=== PATIENT | female | born 1935 | race Caucasian/White ===

== ENCOUNTER 2021-08-15 15:23 | Inpatient (IN) | payer OTHER, BC ==
[~2021-08-15] VITALS: Ht 160 cm; Wt 50.1 kg
--- NOTE | 2021-08-15 15:57 | NUR ---
[facility] Provider at [facility] c/o pt has abnormal lab values. Pt is confused and saying random words. Pt is restless and slightly combative. 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 Skin intact. VSS. Bed in lowest position.
--- NOTE | 2021-08-15 16:08 | NUR ---
MILAD MAYANK ANTIGEN SAMPLE SENT TO LAB.
[2021-08-15] MEDS ORDERED: HYDR-3698 GT (16:14)
[2021-08-15] MEDS ORDERED: LOVI40 SQ (16:14)
[2021-08-15] MEDS ORDERED: ACET325T53 GT (16:14)
[2021-08-15] MEDS ORDERED: ASCO500T20 GT (16:14)
[2021-08-15] MEDS ORDERED: NL IV (16:14)
[2021-08-15] MEDS ORDERED: DOCU-144 GT (16:14)
[2021-08-15] MEDS ORDERED: LACT10SO6 GT (16:14)
[2021-08-15] MEDS ORDERED: PEG15DRO12 EACH EYE (16:14)
[2021-08-15] MEDS ORDERED: MULT-1193 GT (16:14)
[2021-08-15] MEDS ORDERED: POTA-197 GT (16:14)
[2021-08-15] MEDS ORDERED: FAMO20TA8 GT (16:14)
[2021-08-15] MEDS ORDERED: FERR236T3 GT (16:14)
--- NOTE | 2021-08-15 16:14 | NUR ---
Medication reconciliation completed with information provided by [facility]. Any prior medication reconciliation on file was reviewed and corrected.
--- NOTE | 2021-08-15 16:35 | NUR ---
X-Ray being done at bedside.
--- NOTE | 2021-08-15 16:37 | NUR ---
ER at bedside examining patient.
--- NOTE | 2021-08-15 16:39 | NUR ---
fiberglass technician at bedside.
--- NOTE | 2021-08-15 16:39 | NUR ---
Personal Belonging List Completed.
[2021-08-15 17:09] LABS: ANION GAP 14 (5-15); CALCIUM 9.8 mg/dL (8.4-11.0); CHLORIDE 103 mmol/L (98-107); CREATININE 2.95 mg/dL (0.55-1.30); GLUCOSE 96 mg/dL (70-99); HEMOGLOBIN 9.9 g/dL (12.0-16.0); MEAN CORPUSCULAR HGB CONC 33 % (32-36); POTASSIUM 3.4 mmol/L (3.5-5.1); SODIUM SERUM 141 mmol/L (136-145); WHITE BLOOD COUNT (AUTO) 7.5 K/uL (4.8-10.8)
[2021-08-15 17:15] LABS: ALANINE AMINOTRANSFERASE 8 U/L (12-78); ALBUMIN 2.8 g/dL (3.4-4.8); ASPARTATE AMINOTRANSFERASE 20 U/L (10-37); PHOSPHORUS 5.9 mg/dL (2.7-4.5); TOTAL BILIRUBIN 0.3 mg/dL (0.0-1.0)
[2021-08-15 17:20] LABS: BASOPHILS % (AUTO) 0.6 % (0.0-2.0); EOSINOPHILS # (AUTO) 0.5 K/uL (0.0-0.4); EOSINOPHILS % (AUTO) 6.1 % (0.0-4.0); HEMATOCRIT 29.9 % (36-48); LYMPHOCYTES % (AUTO) 26.7 % (20.5-51.5); MEAN CORPUSCULAR HEMOGLOBIN 28 pg (27-31); MEAN CORPUSCULAR VOLUME 83 fL (79.0-98.0); MONOCYTES # (AUTO) 0.3 K/uL (0.0-1.0); MONOCYTES % (AUTO) 4.4 % (1.7-9.3); NEUTROPHILS # (AUTO) 4.7 K/uL (1.8-7.7); NEUTROPHILS % (AUTO) 62.2 % (40.0-70.0); PLATELET COUNT (AUTO) 367 K/uL (130-430); RED BLOOD CELL COUNT(AUTO) 3.61 MIL/uL (4.2-6.2); RED CELL DISTRIBUTION WIDTH 15.8 % (9.0-15.0)
[2021-08-15 17:32] LABS: UREA NITROGEN, BLOOD 147 mg/dL (8-21)
--- NOTE | 2021-08-15 18:09 | NUR ---
Unable to perform EKG due to pt being combative. Dr. Sargent notified.
--- NOTE | 2021-08-15 18:38 | NUR ---
Admitting orders received and have been placed.
--- NOTE | 2021-08-15 18:39 | NUR ---
Admit bed requested Patient will be admitted to care of . Admitted to Tele unit. Diagnosis Acute Renal Failure Inpatient (Yes or No) Yes Observation (Yes or No) No Orientation concerns or request close to nursing station (Yes or No) Yes Covid Status Negative On vent or bipap No Isolation requirements No Needs a sitter No From Home (Yes or if No enter name of facility) snf [facility] Requires Dialysis (Yes or No) No Med Rec Completed (Yes of No) yes
[2021-08-15] MEDS ORDERED: HALOPERIDOL LACTATE 5 MG/ML VIAL IVP ONE (18:45)
[2021-08-15] MEDS ORDERED: ACETAMINOPHEN 325 MG TABLET PO PRN ×2 (19:00)
[2021-08-15] MEDS ORDERED: MAGNESIUM SULFATE 50 ML IV PRN (19:00)
[2021-08-15] MEDS ORDERED: DOCUSATE SODIUM 100 MG CAPSULE PO PRN (19:00)
[2021-08-15] MEDS ORDERED: POTASSIUM CHLORIDE 20 MEQ TAB.PRT.SR PO PRN (19:00)
[2021-08-15] MEDS ORDERED: ONDANSETRON HCL 4 MG/2 ML VIAL IVP PRN (19:00)
[2021-08-15] MEDS ORDERED: NACL 0.9% 1,000 ML IV ONE ×2 (19:00→19:30)
[2021-08-15] MEDS ORDERED: MORPHINE 2 MG/ML INJ. SYRINGE IVP PRN (19:00)
--- NOTE | 2021-08-15 19:01 | NUR ---
# 24 gauge angiocath placed to right forearm. Use of asceptic technique. Opsite placed over site. Blood return noted. Flushed with 10 cc of normal saline. No evidence of infiltration noted. Patient tolerated well.
[2021-08-15] MEDS ORDERED: LORazepam 2 MG/ML VIAL IVP ONE (19:15)
--- NOTE | 2021-08-15 19:20 | NUR ---
Report received from Brandie MELENDEZ at this time. Pt resting in bed at this. EKG attempted by staff, but pt was yelling and continuously taking off leads, so more time to be given for patient to become calm s/p Haldol. Respirations even and unlabored.
--- NOTE | 2021-08-15 21:26 | NUR ---
ADMIT NOTE Received pt from ER to the floor with a diagnosis of ACUTE RENAL FAILURE. Admission process initiated. patient oriented to pain management, safety and call light-teach back done.
[2021-08-15 23:26] VITALS: BP_SYST 111
[2021-08-15] MEDS: LORazepam 2 MG/ML VIAL IVP PRN (23:37)
--- NOTE | 2021-08-16 05:15 | NUR ---
CONSULTATION PAGED/CALLED Reason for Consultation: ACUTE RENAL FAILURE Person Who was Notified:SAMMY Consulting Physician: YAEL Territory Manager General Sales Specialty: Ordering Physician: RACHEL
[2021-08-16 07:39] LABS: ANION GAP 10 (5-15); CALCIUM 10.3 mg/dL (8.4-11.0); CHLORIDE 105 mmol/L (98-107); CREATININE 2.91 mg/dL (0.55-1.30); GLUCOSE 108 mg/dL (70-99); POTASSIUM 3.5 mmol/L (3.5-5.1); SODIUM SERUM 141 mmol/L (136-145)
[2021-08-16 08:00] VITALS: BP_SYST 105
[2021-08-16 08:52] LABS: BASOPHILS # (AUTO) 0.1 K/uL (0.0-0.2); BASOPHILS % (AUTO) 0.7 % (0.0-2.0); EOSINOPHILS # (AUTO) 0.5 K/uL (0.0-0.4); HEMATOCRIT 29.9 % (36-48); HEMOGLOBIN 10.4 g/dL (12.0-16.0); LYMPHOCYTES # (AUTO) 2.9 K/uL (1.0-5.5); MEAN CORPUSCULAR HEMOGLOBIN 28 pg (27-31); MEAN CORPUSCULAR HGB CONC 35 % (32-36); MEAN CORPUSCULAR VOLUME 82 fL (79.0-98.0); MONOCYTES # (AUTO) 0.6 K/uL (0.0-1.0); MONOCYTES % (AUTO) 7.7 % (1.7-9.3); NEUTROPHILS % (AUTO) 49.6 % (40.0-70.0); PLATELET COUNT (AUTO) 354 K/uL (130-430); RED BLOOD CELL COUNT(AUTO) 3.64 MIL/uL (4.2-6.2); RED CELL DISTRIBUTION WIDTH 16.1 % (9.0-15.0); WHITE BLOOD COUNT (AUTO) 8.1 K/uL (4.8-10.8)
[2021-08-16] MEDS: HEPARIN SODIUM,PORCINE 5,000 UNITS/ML VIAL SUBCUT SCH ×2 (09:00→21:16)
[2021-08-16 09:24] LABS: UREA NITROGEN, BLOOD 150 mg/dL (8-21)
--- NOTE | 2021-08-16 09:30 | NUR ---
Called and spoke Dr Dhillon to inform her of critical lab BUN 150. No orders given. She will consult [facility] nephrology.
--- NOTE | 2021-08-16 09:33 | NUR ---
VOLCANOLOGY PROFESSOR DR CONLEY WAS CALLED, RE: HIGH BUN AND CREA.
[2021-08-16] MEDS: NACL 0.9% 1,000 ML IV SCH ×2 (10:24→19:32)
[2021-08-16 12:00] VITALS: BP_SYST 101
[2021-08-16] MEDS: LORazepam 2 MG/ML VIAL IVP PRN ×2 (14:46→21:36)
[2021-08-16 16:00] VITALS: BP_SYST 106
[2021-08-16 19:52] VITALS: BP_SYST 142
--- NOTE | 2021-08-16 20:00 | NUR ---
RECIEVED PT FROM am NURSE. pT IS AOX1 NON VERBAL. pT ST AT 115, AND HAS RIGHT EJ 20G. LUNGS ARE IMINISHED AT BASES. PT IS CONFUSED, UNABLE TO ARTICULATE NEEDS. FAL PRECAUTIONS IN PLACE. BED LCKED I THE LOWEST POSITION WITH CALL LIGHT IN REACH. wILL CONTINUE TO MONITOR.
[2021-08-16 20:07] VITALS: BP_SYST 146
--- NOTE | 2021-08-16 21:59 | NUR ---
RECIEVED ORDER FROM md TIERNEY. ORDER FOR PICC. WILL ATTAIN CONSCENT. PT CURRENTLY HAS A ej RIGHT 20G. NOTIFIED.
[2021-08-16 23:41] LABS: INR 1.1 (0.8-1.2); PROTHROMBIN TIME 11.4 SECS (9.5-12.5)
[2021-08-17 00:45] VITALS: BP_SYST 114
[2021-08-17] MEDS: NACL 0.9% 1,000 ML IV SCH ×3 (02:20→23:59)
--- NOTE | 2021-08-17 05:07 | NUR ---
PT CLEANED, NO URINE COLLECTED. pT OSTOMY BAG EMPTIED. pT IN CONFUSED AND AGGITATED STATE. VS 132/80 BPM 96 SAT 98%. wILL ENDORSE TO AM
[2021-08-17 08:00] VITALS: BP_SYST 103
[2021-08-17 08:13] LABS: BASOPHILS # (AUTO) 0.1 K/uL (0.0-0.2); BASOPHILS % (AUTO) 0.7 % (0.0-2.0); EOSINOPHILS # (AUTO) 0.7 K/uL (0.0-0.4); EOSINOPHILS % (AUTO) 9.3 % (0.0-4.0); HEMOGLOBIN 9.4 g/dL (12.0-16.0); LYMPHOCYTES # (AUTO) 1.1 K/uL (1.0-5.5); LYMPHOCYTES % (AUTO) 14.8 % (20.5-51.5); MEAN CORPUSCULAR HEMOGLOBIN 29 pg (27-31); MEAN CORPUSCULAR HGB CONC 34 % (32-36); MONOCYTES # (AUTO) 0.5 K/uL (0.0-1.0); MONOCYTES % (AUTO) 6.5 % (1.7-9.3); NEUTROPHILS # (AUTO) 5.1 K/uL (1.8-7.7); NEUTROPHILS % (AUTO) 68.7 % (40.0-70.0); PLATELET COUNT (AUTO) 341 K/uL (130-430); RED BLOOD CELL COUNT(AUTO) 3.21 MIL/uL (4.2-6.2); RED CELL DISTRIBUTION WIDTH 16.3 % (9.0-15.0); WHITE BLOOD COUNT (AUTO) 7.4 K/uL (4.8-10.8)
[2021-08-17 08:47] LABS: ANION GAP 12 (5-15); CALCIUM 8.8 mg/dL (8.4-11.0); CHLORIDE 115 mmol/L (98-107); CREATININE 2.34 mg/dL (0.55-1.30); GLUCOSE 88 mg/dL (70-99); POTASSIUM 3.2 mmol/L (3.5-5.1); SODIUM SERUM 149 mmol/L (136-145)
[2021-08-17 10:07] LABS: UREA NITROGEN, BLOOD 122 mg/dL (8-21)
[2021-08-17 10:48] LABS: MEAN CORPUSCULAR VOLUME 87 fL (79.0-98.0)
[2021-08-17 12:57] VITALS: BP_SYST 139
[2021-08-17] MEDS: HEPARIN SODIUM,PORCINE 5,000 UNITS/ML VIAL SUBCUT SCH ×2 (13:30→21:13)
[2021-08-17] MEDS: LORazepam 2 MG/ML VIAL IVP PRN (13:31)
[2021-08-17] MEDS ORDERED: MUPIROCIN 1 GM OIN.PF.APP NS SCH (16:15)
[2021-08-17 16:57] VITALS: BP_SYST 112
[2021-08-17 19:09] VITALS: BP_SYST 103
[2021-08-17] MEDS: MUPIROCIN 2% TOPICAL OINTMENT 22 GM NS SCH (21:11)
[2021-08-18 00:22] VITALS: BP_SYST 134
[2021-08-18] MEDS: NACL 0.9% 1,000 ML IV SCH (02:15)
[2021-08-18 07:55] LABS: BASOPHILS % (AUTO) 0.4 % (0.0-2.0); EOSINOPHILS # (AUTO) 0.4 K/uL (0.0-0.4); EOSINOPHILS % (AUTO) 5.8 % (0.0-4.0); HEMATOCRIT 25.6 % (36-48); HEMOGLOBIN 8.6 g/dL (12.0-16.0); LYMPHOCYTES # (AUTO) 1.1 K/uL (1.0-5.5); LYMPHOCYTES % (AUTO) 15.5 % (20.5-51.5); MEAN CORPUSCULAR HEMOGLOBIN 29 pg (27-31); MEAN CORPUSCULAR HGB CONC 33 % (32-36); MEAN CORPUSCULAR VOLUME 86 fL (79.0-98.0); MONOCYTES # (AUTO) 0.4 K/uL (0.0-1.0); MONOCYTES % (AUTO) 5.8 % (1.7-9.3); NEUTROPHILS # (AUTO) 5.3 K/uL (1.8-7.7); NEUTROPHILS % (AUTO) 72.5 % (40.0-70.0); PLATELET COUNT (AUTO) 311 K/uL (130-430); RED BLOOD CELL COUNT(AUTO) 2.97 MIL/uL (4.2-6.2); RED CELL DISTRIBUTION WIDTH 16.8 % (9.0-15.0); WHITE BLOOD COUNT (AUTO) 7.4 K/uL (4.8-10.8)
[2021-08-18 08:00] VITALS: BP_SYST 117
[2021-08-18 08:22] LABS: ANION GAP 13 (5-15); CALCIUM 8.6 mg/dL (8.4-11.0); CREATININE 2.07 mg/dL (0.55-1.30); GLUCOSE 116 mg/dL (70-99); POTASSIUM 3.1 mmol/L (3.5-5.1); SODIUM SERUM 158 mmol/L (136-145); UREA NITROGEN, BLOOD 97 mg/dL (8-21)
[2021-08-18 09:44] LABS: CHLORIDE 124 mmol/L (98-107)
[2021-08-18] MEDS: MUPIROCIN 2% TOPICAL OINTMENT 22 GM NS SCH ×2 (10:08→20:58)
[2021-08-18] MEDS: HEPARIN SODIUM,PORCINE 5,000 UNITS/ML VIAL SUBCUT SCH ×2 (10:10→20:57)
[2021-08-18] MEDS: D5W 1,000 ML IV SCH ×2 (10:51→18:57)
[2021-08-18 12:44] VITALS: BP_SYST 111
[2021-08-18] MEDS: POTASSIUM CHLORIDE 20 MEQ/PKT PACKET PO PRN (14:27)
[2021-08-18] MEDS: MORPHINE 2 MG/ML INJ. SYRINGE IVP PRN (14:44)
[2021-08-18 16:21] VITALS: BP_SYST 116
--- NOTE | 2021-08-18 18:45 | NUR ---
Miss Lee has been assessed as indicated. She has tolerated TF well. She has been visited by her brother. 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 She has been treated for discomfort x1 this shift and is presently quietly
--- NOTE | 2021-08-18 19:15 | NUR ---
Handoff has been given to Ashanti
[2021-08-19 00:37] VITALS: BP_SYST 130
[2021-08-19] MEDS: D5W 1,000 ML IV SCH ×4 (04:05→23:00)
[2021-08-19 07:36] LABS: BASOPHILS # (AUTO) 0.1 K/uL (0.0-0.2); BASOPHILS % (AUTO) 0.5 % (0.0-2.0); EOSINOPHILS # (AUTO) 0.4 K/uL (0.0-0.4); EOSINOPHILS % (AUTO) 3.3 % (0.0-4.0); HEMATOCRIT 25.2 % (36-48); HEMOGLOBIN 8.3 g/dL (12.0-16.0); LYMPHOCYTES # (AUTO) 1.9 K/uL (1.0-5.5); LYMPHOCYTES % (AUTO) 17.5 % (20.5-51.5); MEAN CORPUSCULAR HEMOGLOBIN 28 pg (27-31); MEAN CORPUSCULAR HGB CONC 33 % (32-36); MEAN CORPUSCULAR VOLUME 86 fL (79.0-98.0); MONOCYTES # (AUTO) 0.6 K/uL (0.0-1.0); MONOCYTES % (AUTO) 5.4 % (1.7-9.3); NEUTROPHILS % (AUTO) 73.3 % (40.0-70.0); PLATELET COUNT (AUTO) 300 K/uL (130-430); RED BLOOD CELL COUNT(AUTO) 2.94 MIL/uL (4.2-6.2); RED CELL DISTRIBUTION WIDTH 16.4 % (9.0-15.0); WHITE BLOOD COUNT (AUTO) 10.9 K/uL (4.8-10.8)
[2021-08-19 08:00] VITALS: BP_SYST 101
[2021-08-19 08:12] LABS: ANION GAP 10 (5-15); CALCIUM 8.6 mg/dL (8.4-11.0); CHLORIDE 117 mmol/L (98-107); CREATININE 1.85 mg/dL (0.55-1.30); GLUCOSE 122 mg/dL (70-99); POTASSIUM 3.4 mmol/L (3.5-5.1); SODIUM SERUM 149 mmol/L (136-145); UREA NITROGEN, BLOOD 69 mg/dL (8-21)
[2021-08-19] MEDS: HEPARIN SODIUM,PORCINE 5,000 UNITS/ML VIAL SUBCUT SCH ×2 (10:01→21:41)
[2021-08-19] MEDS: MUPIROCIN 2% TOPICAL OINTMENT 22 GM NS SCH ×2 (10:01→21:44)
[2021-08-19 11:01] LABS: BILIRUBIN,URINE NEGATIVE (NEGATIVE); BLOOD, URINE 2+ (NEGATIVE); CLARITY/URINE TURBID (CLEAR); COLOR,URINE YELLOW (YELLOW); GLUCOSE,URINE NEGATIVE (NEGATIVE); KETONES,URINE NEGATIVE (NEGATIVE); LEUKOCYTE ESTERASE ,URINE 3+ (NEGATIVE); NITRITE, URINE POSITIVE (NEGATIVE); PROTEIN URINE TRACE (NEGATIVE); UROBILINOGEN,URINE 0.2 (0.2-1.0)
[2021-08-19 11:12] LABS: BACTERIA,URINE MANY /HPF (None Seen); WBC,URINE >100 /HPF (0-3)
[2021-08-19 11:13] LABS: MUCUS,URINE 1+ /LPF (None Seen)
--- NOTE | 2021-08-19 11:53 | NUR ---
Discharge Planning: ANN faxed pt referral to [facility] P#[phone] ANN to follow up. Addendum: 08/19/21 at 1415 by Zulema Benson DP ANN followed up with Sailaja at [facility] P#[phone] pt will go to [facility] [address]. ANN made CM aware.
[2021-08-19 12:33] VITALS: BP_SYST 113
[2021-08-19] MEDS: POTASSIUM CHLORIDE 20 MEQ/PKT PACKET PO PRN (12:43)
--- NOTE | 2021-08-19 14:39 | NUR ---
Dietitian Recommendations * Decrease TF to Nepro at 25 ml/hr (goal rate), FWF per MD * TF w/ D5W provides: 1692 kcals/day, 49 g protein/day * Meetin% of upper end of estimated caloric needs and 122% of upper end of estimated protein needs * Consider discontinuing D5W d/t excessive caloric intake and elevated BG. Please refer to Nutrition Assessment for details. Addendum: 08/19/21 at [address] Amended: Links added.
[2021-08-19 16:24] VITALS: BP_SYST 119
--- NOTE | 2021-08-19 18:45 | NUR ---
Miss Liang has been assessed as indicated. her TF is presently being held until CXR is read. IVF has been well tolerated. UA has been collected and sent. colostomy functions well with liquid green stools. suction has been set up for thick yellow secretion that he has started to have. her brother called to check on her but did not come in for a visit today. Miss Liang rests quietly at this time
--- NOTE | 2021-08-19 19:24 | NUR ---
handoff has been given to Zain
[2021-08-19 20:32] VITALS: BP_SYST 108
[2021-08-20] VITALS: BP_SYST 119
--- NOTE | 2021-08-20 04:39 | NUR ---
CONSULTATION PAGED/CALLED Reason for Consultation: G TUBE CONNECTION FOR FEEDING Person Who was Notified: Consulting Physician: MARVA BURGESS ONCVIPUL [employer] Service Specialty: Ordering Physician: BARRINGTON
[2021-08-20] MEDS: D5W 1,000 ML IV SCH ×3 (06:15→18:53)
[2021-08-20] MEDS: ACETYLCYSTEINE 10% 4 ML VIAL (RT) INH SCH ×2 (07:30→15:46)
[2021-08-20 07:53] LABS: BASOPHILS % (AUTO) 0.2 % (0.0-2.0); EOSINOPHILS # (AUTO) 0.1 K/uL (0.0-0.4); EOSINOPHILS % (AUTO) 0.6 % (0.0-4.0); HEMATOCRIT 24.5 % (36-48); HEMOGLOBIN 8.3 g/dL (12.0-16.0); LYMPHOCYTES # (AUTO) 1.7 K/uL (1.0-5.5); MEAN CORPUSCULAR HEMOGLOBIN 28 pg (27-31); MEAN CORPUSCULAR HGB CONC 34 % (32-36); MEAN CORPUSCULAR VOLUME 84 fL (79.0-98.0); MONOCYTES # (AUTO) 0.8 K/uL (0.0-1.0); MONOCYTES % (AUTO) 5.9 % (1.7-9.3); NEUTROPHILS # (AUTO) 11.3 K/uL (1.8-7.7); NEUTROPHILS % (AUTO) 81.3 % (40.0-70.0); PLATELET COUNT (AUTO) 267 K/uL (130-430); RED BLOOD CELL COUNT(AUTO) 2.92 MIL/uL (4.2-6.2); RED CELL DISTRIBUTION WIDTH 16.6 % (9.0-15.0); WHITE BLOOD COUNT (AUTO) 13.9 K/uL (4.8-10.8)
[2021-08-20 08:01] LABS: ANION GAP 8 (5-15); CALCIUM 8.1 mg/dL (8.4-11.0); CHLORIDE 104 mmol/L (98-107); GLUCOSE 141 mg/dL (70-99); POTASSIUM 3.9 mmol/L (3.5-5.1); SODIUM SERUM 133 mmol/L (136-145); UREA NITROGEN, BLOOD 50 mg/dL (8-21)
[2021-08-20] MEDS ORDERED: cefTRIAXone 1 GM in D5W 50 ML IV SCH (09:00)
[2021-08-20] MEDS: ALBUTEROL SULFATE 0.083% 2.5 MG/3 ML VIAL.NEB INH SCH ×2 (09:00→15:46)
--- NOTE | 2021-08-20 10:03 | NUR ---
Discharge Planning: DCP arranged transport on Will Call with [facility] [phone] BLS to [facility] P#[phone] pt will go to RM 311A. Pending final DC order.
--- NOTE | 2021-08-20 10:05 | NUR ---
CONSULT ID WORSENING WBC VIOLET MCDONALD [phone] S/W [facility] OFFICE FS FAXED TO [phone]
[2021-08-20] MEDS: HEPARIN SODIUM,PORCINE 5,000 UNITS/ML VIAL SUBCUT SCH ×2 (10:45→21:56)
[2021-08-20] MEDS: MUPIROCIN 2% TOPICAL OINTMENT 22 GM NS SCH ×2 (10:46→21:58)
[2021-08-20 11:35] VITALS: BP_SYST 117
--- NOTE | 2021-08-20 12:53 | NUR ---
Miss Liang is awaiting PEG tube replacement. [facility] with a 16fr sized device that is not available at this time.
[2021-08-20 13:16] VITALS: BP_SYST 117
[2021-08-20 15:40] VITALS: BP_SYST 97
[2021-08-20 20:00] VITALS: BP_SYST 110
--- NOTE | 2021-08-20 20:00 | NUR ---
OPENING NOTES: Patient received from AM shift. Patient is no able to make needs known no s/s of distress is noted at this time. Chest rise is even and unlabored on 8L via simple mask. Heart rate is elevated noted at >110bpm. Active BS present x4, no pain noted with palpation, no distention noted. GT peg noted. PIV on RFA infusing D5 at 150ml/hr. Safety measures are in place. Will continue to monitor throughout the shift.
[2021-08-21] MEDS: ALBUTEROL SULFATE 0.083% 2.5 MG/3 ML VIAL.NEB INH SCH ×4 (00:55→21:43)
[2021-08-21] MEDS: ACETYLCYSTEINE 10% 4 ML VIAL (RT) INH SCH ×4 (00:55→21:43)
--- NOTE | 2021-08-21 01:30 | NUR ---
Patient HR noted to be elevated and sustaining in 150bpm range Dr. York notified new order for Lopressor given 2.5IVP.
[2021-08-21 01:47] VITALS: BP_SYST 107
[2021-08-21] MEDS ORDERED: METOPROLOL TARTRATE 5 MG/5 ML AMPUL IVP ONE (02:00)
[2021-08-21] MEDS: MORPHINE 2 MG/ML INJ. SYRINGE IVP PRN (02:06)
--- NOTE | 2021-08-21 02:15 | NUR ---
Patient BP is low at 81/60 not able to give lopressor at this time
[2021-08-21] MEDS: D5W 1,000 ML IV SCH ×3 (02:35→15:29)
--- NOTE | 2021-08-21 03:30 | NUR ---
Patient BP noted at 90/62 will hold lopressor reassess and call
--- NOTE | 2021-08-21 06:48 | NUR ---
CLOSING NOTES: Patient is in bed resting no s/s of distress is noted at this time current HR is 111. BP has increased to 106/46. Chest rise is even and unlabored. Patient is stable at this time. All current shift needs have been met and safety protocols remain in place. Will differ further care to AM shift for continuity of care.
[2021-08-21 07:14] LABS: BASOPHILS % (AUTO) 0.1 % (0.0-2.0); HEMATOCRIT 23.7 % (36-48); LYMPHOCYTES # (AUTO) 1.3 K/uL (1.0-5.5); MEAN CORPUSCULAR HEMOGLOBIN 28 pg (27-31); MEAN CORPUSCULAR HGB CONC 34 % (32-36); MEAN CORPUSCULAR VOLUME 83 fL (79.0-98.0); MONOCYTES # (AUTO) 0.8 K/uL (0.0-1.0); MONOCYTES % (AUTO) 4.5 % (1.7-9.3); NEUTROPHILS # (AUTO) 14.6 K/uL (1.8-7.7); NEUTROPHILS % (AUTO) 87.4 % (40.0-70.0); PLATELET COUNT (AUTO) 251 K/uL (130-430); RED BLOOD CELL COUNT(AUTO) 2.88 MIL/uL (4.2-6.2); RED CELL DISTRIBUTION WIDTH 15.9 % (9.0-15.0); WHITE BLOOD COUNT (AUTO) 16.7 K/uL (4.8-10.8)
--- NOTE | 2021-08-21 07:39 | NUR ---
CONSULTATION PAGED REASON FOR CONSULTATION:PERSITENT TACHYCARDIA WAS CONSULT CALLED?Y -PERSON WHO WAS NOTIFIED:SAMMY CONSULTING PHYSICIAN:[facility]ER [facility] SURG[facility] TECH SPECIALTY:CARDIO SURGERY TECH PHONE NUMBER:[phone] REQUESTING PHYSICIAN[facility]
[2021-08-21 07:45] LABS: ANION GAP 11 (5-15); CHLORIDE 98 mmol/L (98-107); CREATININE 1.74 mg/dL (0.55-1.30); GLUCOSE 117 mg/dL (70-99); POTASSIUM 4.1 mmol/L (3.5-5.1); SODIUM SERUM 127 mmol/L (136-145); UREA NITROGEN, BLOOD 52 mg/dL (8-21)
[2021-08-21 08:00] VITALS: BP_SYST 90
[2021-08-21] MEDS: HEPARIN SODIUM,PORCINE 5,000 UNITS/ML VIAL SUBCUT SCH ×2 (08:47→21:45)
[2021-08-21] MEDS: MUPIROCIN 2% TOPICAL OINTMENT 22 GM NS SCH ×2 (08:48→21:41)
[2021-08-21 09:20] LABS: CALCIUM 7.5 mg/dL (8.4-11.0)
[2021-08-21] MEDS ORDERED: LEVOFLOXACIN 250 MG/D5W 50 ML IV SCH (10:00)
[2021-08-21 11:36] VITALS: BP_SYST 122
[2021-08-21] MEDS ORDERED: VANCOMYCIN HCL 1,000 MG in NS 250 ML IV SCH (12:00)
--- NOTE | 2021-08-21 13:00 | NUR ---
NEWLY ORDERED IV ABX NOT GIVEN NO IV ACCESS
--- NOTE | 2021-08-21 15:00 | NUR ---
UNABLE TO ESTABLISH IV ACCESS. WILL NEED PICC LINE
[2021-08-21 15:48] VITALS: BP_SYST 91
--- NOTE | 2021-08-21 17:37 | NUR ---
PICC LINE ORDERED AND AWAITING PICC LINE NURSE'S ARRIVAL
[2021-08-21 18:48] LABS: INR 1.1 (0.8-1.2); PROTHROMBIN TIME 11.9 SECS (9.5-12.5)
--- NOTE | 2021-08-21 19:00 | NUR ---
Miss Liang has been assessed as indicated. Her TF is running and has been well tolerated. She remains on simple mask. she is awaitig PICC line access consent has been obtained. She is resting quietly
--- NOTE | 2021-08-21 19:15 | NUR ---
handoff has been given to Shanta
--- NOTE | 2021-08-21 19:30 | NUR ---
OPENING NOTES: Patient received from AM shift. Patient is unable to communicate needs, no s/s of distress is noted at this time. Chest rise is even and tachy on 8L via simple mask with O2 sat at 99%. Tachy HR present on telemonitoring ranging up to 120bpm at this time. Active BS x4, no pain with palpation, no distention noted. Colostomy bag noted on ABD and GT site with s/s of infection. Patient has Tube feeding running at 30ml/hr with 300ml H2O flushes Q6hrs. No PIV in place but order are in place for the insertion of a PICC Line. All IV orders are on Hold pending placement and verification. Safety protocols are in place will continue to monitor throughout the shift.
[2021-08-21 20:00] VITALS: BP_SYST 103
--- NOTE | 2021-08-22 00:30 | NUR ---
PATIENT RESTING: Patient resting quietly. No acute distress noted. Vital signs within normal range.
[2021-08-22] MEDS ORDERED: LEVOFLOXACIN 250 MG/D5W 50 ML IV SCH (01:00)
--- NOTE | 2021-08-22 01:30 | NUR ---
PICC Line nurse at Bedside inserting new line.
[2021-08-22 01:48] VITALS: BP_SYST 89
[2021-08-22] MEDS: D5W 1,000 ML IV SCH ×2 (02:23→12:27)
[2021-08-22] MEDS: VANCOMYCIN HCL 1,000 MG in NS 250 ML IV SCH (02:24)
[2021-08-22 07:06] LABS: BASOPHILS % (AUTO) 0.2 % (0.0-2.0); EOSINOPHILS % (AUTO) 0.1 % (0.0-4.0); HEMATOCRIT 22.1 % (36-48); HEMOGLOBIN 7.5 g/dL (12.0-16.0); LYMPHOCYTES # (AUTO) 1.1 K/uL (1.0-5.5); LYMPHOCYTES % (AUTO) 7.2 % (20.5-51.5); MEAN CORPUSCULAR HEMOGLOBIN 28 pg (27-31); MEAN CORPUSCULAR HGB CONC 34 % (32-36); MEAN CORPUSCULAR VOLUME 82 fL (79.0-98.0); MONOCYTES # (AUTO) 0.4 K/uL (0.0-1.0); MONOCYTES % (AUTO) 2.3 % (1.7-9.3); NEUTROPHILS % (AUTO) 90.2 % (40.0-70.0); PLATELET COUNT (AUTO) 232 K/uL (130-430); RED CELL DISTRIBUTION WIDTH 16.2 % (9.0-15.0); WHITE BLOOD COUNT (AUTO) 15.5 K/uL (4.8-10.8)
--- NOTE | 2021-08-22 07:31 | NUR ---
CLOSING NOTES: Patient is in bed resting no s/s of distress is noted at this time. Patient is unable to verbalize need. All current shift needs have been met at this time, Safety measures are in place. Will differ care to AM shift for continuity of care.
[2021-08-22 07:32] LABS: ANION GAP 10 (5-15); CALCIUM 7.3 mg/dL (8.4-11.0); CHLORIDE 96 mmol/L (98-107); CREATININE 1.62 mg/dL (0.55-1.30); GLUCOSE 124 mg/dL (70-99); POTASSIUM 3.7 mmol/L (3.5-5.1); SODIUM SERUM 125 mmol/L (136-145); UREA NITROGEN, BLOOD 55 mg/dL (8-21)
--- NOTE | 2021-08-22 07:50 | NUR ---
AM ASSESSMENT PT SEEN PUSHING DOWN HER RIGHT FINGERS TO HER MOUTH, TURNED AND REPOSITIONED IN BED, RESTRAINTS OFF AND ON, GTUBE AND COLOSTOMY BAG IN PLACE, INCONTINENT OF BLADDER, GOOD PERICARE DONE.
[2021-08-22 07:51] VITALS: BP_SYST 109
[2021-08-22] MEDS: ALBUTEROL SULFATE 0.083% 2.5 MG/3 ML VIAL.NEB INH SCH (07:52)
[2021-08-22] MEDS: ACETYLCYSTEINE 10% 4 ML VIAL (RT) INH SCH ×3 (07:53→19:33)
[2021-08-22] MEDS ORDERED: METHYLPREDNISOLONE SOD SUCC 40 MG/ML VIAL IVP ONE (09:30)
[2021-08-22] MEDS ORDERED: ALBUTEROL SULFATE 0.083% 2.5 MG/3 ML VIAL.NEB INH PRN (09:30)
--- NOTE | 2021-08-22 09:50 | NUR ---
RT NOTE: 0950 Pt placed on high flow nasal cannula per Dr's orders. Set at 25LPM and 50% FiO2. SpO2 at 94% and tolerating well. AL Casarez notified. Addendum: 08/22/21 at 0959 by Delma Kern RT Amended: Links added.
[2021-08-22] MEDS: HEPARIN SODIUM,PORCINE 5,000 UNITS/ML VIAL SUBCUT SCH ×2 (10:04→20:37)
[2021-08-22] MEDS: MUPIROCIN 2% TOPICAL OINTMENT 22 GM NS SCH (10:14)
[2021-08-22] MEDS: LORazepam 2 MG/ML VIAL IVP PRN (10:42)
[2021-08-22] MEDS: IPRATROPIUM/ALBUTEROL SULFATE 3 ML AMPUL.NEB (DUONEB) INH SCH ×4 (11:00→23:00)
[2021-08-22 12:41] VITALS: BP_SYST 86
--- NOTE | 2021-08-22 12:49 | NUR ---
Discharge Planning: DCP spoke to Joanna at [facility] [phone] DON will not take pt on 25L of oxygen, DCP inquired if pt oxygen can trend down can pt admit. [facility] faxed over hospice order F#[phone]. DCP to follow up. [facility] made CM and director aware.
--- NOTE | 2021-08-22 13:27 | NUR ---
[facility] requested H and P for patient. It was faxed to Tanesha at [phone].
--- NOTE | 2021-08-22 14:23 | NUR ---
[facility] CALLED TO GET STATUS OF THE PATIENT. SHE STATED THAT SHE WILL CONTACT HER VETERINARY ANATOMIST IF THEY CAN ACCOMMODATE THE PATIENT ON HIGH FLOW OXYGEN.
--- NOTE | 2021-08-22 15:30 | NUR ---
RT NOTE: 1530 Post HHN tx, decreased FiO2 to 45%. Pt SpO2 is at 96%. Will continue to monitor and titrate O2. RN notified. Addendum: 08/22/21 at 1536 by Delma Kern RT Amended: Links added.
--- NOTE | 2021-08-22 16:00 | NUR ---
HYGIENE COLOSTOMY BAG LEAKING.BAG CHANGED, SKIN CARE DONE, PERINEAL CARE DONE.
[2021-08-22 16:54] VITALS: BP_SYST 117
--- NOTE | 2021-08-22 19:35 | NUR ---
ROUNDS PATIENT IN BED, ON BILATERAL SOFT WRISTS RESTRAINTS FOR PULLING OUT LINES AND TUBES, VITALS STABLE. ASSESSMENT DONE AND DOCUMENTED. SEE FLOWSHEET. NEEDS ATTENDED TO. WILL CONTINUE TO MONITOR.
[2021-08-22 19:54] VITALS: BP_SYST 115
[2021-08-22] MEDS: LEVOFLOXACIN 250 MG/D5W 50 ML IV SCH (20:34)
[2021-08-22] MEDS: METHYLPREDNISOLONE SOD SUCC 40 MG/ML VIAL IVP SCH (20:35)
[2021-08-22 23:10] LABS: BILIRUBIN,URINE NEGATIVE (NEGATIVE); BLOOD, URINE 2+ (NEGATIVE); CLARITY/URINE SL CLOUDY (CLEAR); COLOR,URINE YELLOW (YELLOW); GLUCOSE,URINE NEGATIVE (NEGATIVE); KETONES,URINE NEGATIVE (NEGATIVE); LEUKOCYTE ESTERASE ,URINE 3+ (NEGATIVE); NITRITE, URINE POSITIVE (NEGATIVE); PROTEIN URINE NEGATIVE (NEGATIVE); UROBILINOGEN,URINE 0.2 (0.2-1.0)
[2021-08-22 23:41] LABS: BACTERIA,URINE FEW /HPF (None Seen); RBC,URINE 0-3 /HPF (0-3)
[2021-08-22 23:42] LABS: MUCUS,URINE 3+ /LPF (None Seen)
--- NOTE | 2021-08-23 00:16 | NUR ---
PATIENT RESTING: Patient resting quietly. No acute distress noted. Vital signs within normal range.
[2021-08-23 02:09] VITALS: BP_SYST 135
[2021-08-23] MEDS: IPRATROPIUM/ALBUTEROL SULFATE 3 ML AMPUL.NEB (DUONEB) INH SCH ×6 (04:04→23:50)
[2021-08-23] MEDS: ACETYLCYSTEINE 10% 4 ML VIAL (RT) INH SCH ×3 (07:17→20:36)
[2021-08-23 07:22] LABS: LYMPHOCYTES # (AUTO) 0.6 K/uL (1.0-5.5); LYMPHOCYTES % (AUTO) 4.8 % (20.5-51.5); MEAN CORPUSCULAR HEMOGLOBIN 27 pg (27-31); MEAN CORPUSCULAR HGB CONC 34 % (32-36); MEAN CORPUSCULAR VOLUME 81 fL (79.0-98.0); MONOCYTES # (AUTO) 0.4 K/uL (0.0-1.0); MONOCYTES % (AUTO) 2.8 % (1.7-9.3); NEUTROPHILS # (AUTO) 11.5 K/uL (1.8-7.7); NEUTROPHILS % (AUTO) 92.4 % (40.0-70.0); PLATELET COUNT (AUTO) 230 K/uL (130-430); RED BLOOD CELL COUNT(AUTO) 2.53 MIL/uL (4.2-6.2); RED CELL DISTRIBUTION WIDTH 16.4 % (9.0-15.0); WHITE BLOOD COUNT (AUTO) 12.5 K/uL (4.8-10.8)
--- NOTE | 2021-08-23 07:30 | NUR ---
received report from nightshift Rn at bedside. Patient is laying in bed in no signs of acute distress. Patient is lethargic and does not respond to name or commands. Pupils are PERRLA. Patient speaks uzbek but is garbled and cannot make out what she is stating. Patient is a DNR and is waiting for a hospice consult. she is incontinent. Patient has bilateral wrist restraints due to pulling tubes/lines on nightshift. Patient does have mobility in her legs, but is too weak to walk or stand.
--- NOTE | 2021-08-23 09:30 | NUR ---
CRITICAL LAB HGB - 6.9 HCT - 20.[address] KHALIL AND SHE WILL SPEAK TO FAMILY ABOUT TRANSFUSING BLOOD.
[2021-08-23 09:36] LABS: HEMATOCRIT 20.5 % (36-48); HEMOGLOBIN 6.9 g/dL (12.0-16.0)
[2021-08-23] MEDS: METHYLPREDNISOLONE SOD SUCC 40 MG/ML VIAL IVP SCH ×2 (09:48→21:24)
[2021-08-23] MEDS: HEPARIN SODIUM,PORCINE 5,000 UNITS/ML VIAL SUBCUT SCH ×2 (09:51→21:22)
[2021-08-23 10:08] LABS: ANION GAP 10 (5-15); CALCIUM 7.4 mg/dL (8.4-11.0); CHLORIDE 92 mmol/L (98-107); CREATININE 1.81 mg/dL (0.55-1.30); GLUCOSE 115 mg/dL (70-99); POTASSIUM 4.1 mmol/L (3.5-5.1); SODIUM SERUM 121 mmol/L (136-145); UREA NITROGEN, BLOOD 60 mg/dL (8-21)
--- NOTE | 2021-08-23 11:24 | NUR ---
Nutrition F/U Admitting Diagnosis Acute Renal Failure Reviewed Pertinent Medical/Surgical Hx Medical Record Nursing staff Medical History Comment: PMH: CKD, COPD, GERD, cerebral palsy, A. fib, hypothyroidism, with G-tube and colostomy placement, per physician notes SARS-CoV-2 Ag (Rapid) Negative 08/15 Subjective Information The patient was w/ nursing staff for ADLs at time of visit, per nurse, TF of Nepro infusing @ 30 ml/h, IV fluid DC'd per MAY. TF provision exceeds nutrition needs and provides 108% of max est kcal need and 145% of max est protein need. Per EMR review, Colostomy w/ dark output, Cristo score 12 on 08/22 @ 1999, bilat feet noted w/ "pinkish-red" wounds, no drainage. Current Diet Order/Nutrition Support Nepro at 30 ml/hr (goal), FWF 300 ml q6h x 3 days Patient/Significant Other Unable To Verbalize Education Provided Not Indicated Pertinent Medications Solumedrol, KCl 20 mEq, IV ABX Pertinent Labs Na 121 L, BUN 60 H, Cr 1.81 H, BG 115 H Height (Feet) 5 feet Height (Inches) 3.00 inches Weight (Pounds) 110 pounds Weight (Ounces) 7.0 oz Weight (Calculated Kilograms) 50.656830 kilograms Patient Weight 50.094 kg Body Mass Index 19.48 kg/m2 %IBW 96 [place]/Adjusted Body Weight 115#/52.3 kg Recent Weight Change No - none per grout worker Weight Status Appropriate Usual Diet At Home TF per grout worker Skin Integrity Comment: Cristo score 12- no PIs noted Current % PO N/A: TF Estimated Energy Expenditure (kcals/day) 3870-3880 kcals/day (20-25 kcals/kg CBW for maintenance) Estimated Protein Required (g/day) 30-40 g/day (0.6-0.8 g/kg CBW d/t ANDRE) Estimated Fluid Required (l/day) per MD d/t ANDRE Problem/Etiology/Signs/Symptoms Altered nutrition-related labs R/T renal dysfunction AEB abnormal BUN and Cr lab values. Excessive energy intake R/T EN order and D5W AEB EN w/ D5W providing 108% of upper end of estimated caloric need and 145% of upper end of estimated protein need Expected Outcomes/Goals Monitor tolerance of EN w/ goal of pt meeting greater than 80% of estimated needs, labs trending WNL, normal GI function, skin integrity, wt maintenance. Dietitian Recommendations * Decrease TF to Nepro at 25 ml/hr (goal rate), FWF per MD * Current TF of Nepro @ 30 ml/h provides 1296 kcals, 58 gm protein, 523 ml free water to meet 108% of upper end of kcal needs and 145% of upper end of protein need Follow Up High Risk: F/U in 2-3days Follow Up By Aug 25, 2021 Alert Not Indicated
--- NOTE | 2021-08-23 11:38 | NUR ---
Dietitian Recommendation *Consider reducing G-tube feeding of Nepro to 25 ml/h to better meet nutritional needs. Please refer to nutrition assessment for details. PS, RD
[2021-08-23 12:00] VITALS: BP_SYST 101
[2021-08-23] MEDS ORDERED: FUROSEMIDE 20 MG/2 ML VIAL IVP ONE (14:30)
[2021-08-23 15:25] VITALS: BP_SYST 101
[2021-08-23 16:00] VITALS: BP_SYST 131
--- NOTE | 2021-08-23 19:50 | NUR ---
OPEN NOTE PATIENT IN BED, ALERT AND ORIENTED X 0. NO NOTABLE DISTRESS NOTED. BILATERAL ARM RESTRAINTS PLACED WITH FOUR BED SIDE RAILS UP. G-TUBE RUNNING WITH NO APPARENT ISSUES AT 30ML/HR WITH 300 WATER FLUSHES EVERY 6 HOURS. RIGHT UPPER ARM PEG RUNNING WELL. PATIENT IS A DNR THAT WILL BE PLACED ON HOSPICE CARE ONCE EVALUATION IS COMPLETED.
[2021-08-23 20:00] VITALS: BP_SYST 104
[2021-08-23] MEDS: LEVOFLOXACIN 250 MG/D5W 50 ML IV SCH (21:23)
[2021-08-23] MEDS: FUROSEMIDE 20 MG/2 ML VIAL IVP SCH (21:24)
--- NOTE | 2021-08-23 23:58 | NUR ---
CLOSING NOTE GAVE REPORT TO NURSE VIVAS. PATIENT STABLE AND COMFORTABLE WHEN GIVING REPORT.
--- NOTE | 2021-08-24 | NUR ---
pt.re-assigned.i received pt's report/data per avelion.pt.presents g-tube,picc line;lt.bicept.colostomy.restraints:wrsit;bilateral in place.pt.presents incoherent speech status.per flacc pain mgx pt.absent facial grimaces/body posturing.call light/telephone in access of the pt.
[2021-08-24 01:26] VITALS: BP_SYST 128
[2021-08-24] MEDS: IPRATROPIUM/ALBUTEROL SULFATE 3 ML AMPUL.NEB (DUONEB) INH SCH ×6 (04:46→23:00)
[2021-08-24] MEDS ORDERED: VANCOMYCIN HCL 1000 MG/VIAL IV ONE (05:08)
[2021-08-24] MEDS: VANCOMYCIN HCL 1,000 MG in NS 250 ML IV SCH ×3 (05:25)
--- NOTE | 2021-08-24 06:00 | NUR ---
pt.assessed.picc line,g-tube,colostomy intact,restraints in place skin/circulation wnl.per flacc pain mgx pt.absent facial grimaces/body posturing.pt.assessed for cleanliness.pt.repositioned.call light/telephone placed w/in access of the pt.
[2021-08-24 06:44] LABS: BASOPHILS % (AUTO) 0.1 % (0.0-2.0); HEMOGLOBIN 7.3 g/dL (12.0-16.0); LYMPHOCYTES # (AUTO) 0.7 K/uL (1.0-5.5); LYMPHOCYTES % (AUTO) 5.2 % (20.5-51.5); MEAN CORPUSCULAR HEMOGLOBIN 28 pg (27-31); MEAN CORPUSCULAR HGB CONC 34 % (32-36); MEAN CORPUSCULAR VOLUME 81 fL (79.0-98.0); MONOCYTES # (AUTO) 0.5 K/uL (0.0-1.0); MONOCYTES % (AUTO) 4.1 % (1.7-9.3); NEUTROPHILS # (AUTO) 11.7 K/uL (1.8-7.7); NEUTROPHILS % (AUTO) 90.6 % (40.0-70.0); PLATELET COUNT (AUTO) 236 K/uL (130-430); RED BLOOD CELL COUNT(AUTO) 2.63 MIL/uL (4.2-6.2); RED CELL DISTRIBUTION WIDTH 16.9 % (9.0-15.0); WHITE BLOOD COUNT (AUTO) 12.9 K/uL (4.8-10.8)
[2021-08-24 07:30] LABS: ANION GAP 12 (5-15); CALCIUM 8.2 mg/dL (8.4-11.0); CHLORIDE 100 mmol/L (98-107); CREATININE 2.15 mg/dL (0.55-1.30); GLUCOSE 141 mg/dL (70-99); SODIUM SERUM 132 mmol/L (136-145); UREA NITROGEN, BLOOD 79 mg/dL (8-21)
[2021-08-24 07:34] LABS: HEMATOCRIT 21.4 % (36-48)
[2021-08-24 08:00] VITALS: BP_SYST 102
[2021-08-24] MEDS: ACETYLCYSTEINE 10% 4 ML VIAL (RT) INH SCH ×3 (08:01→20:16)
[2021-08-24] MEDS: FUROSEMIDE 20 MG/2 ML VIAL IVP SCH (08:41)
[2021-08-24] MEDS: METHYLPREDNISOLONE SOD SUCC 40 MG/ML VIAL IVP SCH ×2 (08:42→20:33)
[2021-08-24] MEDS ORDERED: POTASSIUM CHLORIDE 20 MEQ/PKT PACKET PO ONE (08:45)
[2021-08-24] MEDS: HEPARIN SODIUM,PORCINE 5,000 UNITS/ML VIAL SUBCUT SCH ×2 (08:53→20:20)
[2021-08-24] MEDS: MORPHINE 2 MG/ML INJ. SYRINGE IVP PRN ×2 (09:09→16:15)
[2021-08-24 12:00] VITALS: BP_SYST 109
--- NOTE | 2021-08-24 14:49 | NUR ---
ID MD DR AMITA SERVIN WAS CALLED RE: ESBL OF THE URINE. SPOKE TO JOSE
[2021-08-24 16:00] VITALS: BP_SYST 101
[2021-08-24] MEDS: LORazepam 2 MG/ML VIAL IVP PRN (16:01)
[2021-08-24] MEDS ORDERED: HYDROmorphone 2 MG/ML VIAL IVP PRN (17:30)
[2021-08-24 19:45] VITALS: BP_SYST 91
[2021-08-24] MEDS: DOXYCYCLINE HYCLATE 100 MG CAPSULE PO SCH (20:33)
[2021-08-24] MEDS ORDERED: MEROPENEM 500 MG VIAL IV ONE (21:46)
[2021-08-24] MEDS: MEROPENEM 500 MG in NS 50 ML IV SCH (22:20)
[2021-08-25 00:48] VITALS: BP_SYST 103
--- NOTE | 2021-08-25 01:48 | NUR ---
1930 Pt. sleeping, no acute distress, hob at 30 degrees, no resp. distress. 2200 Pt. attempting to pull at gtube, kamar. wrist restraints in place, hob at 30 degrees, will monitor. 0030 Pt. turned, and given ana care q2, gtube feeding being tolerated via gtube, no residual. 0200 Pt. sleeping, no distress.
[2021-08-25] MEDS: IPRATROPIUM/ALBUTEROL SULFATE 3 ML AMPUL.NEB (DUONEB) INH SCH ×5 (03:00→20:50)
--- NOTE | 2021-08-25 06:18 | NUR ---
0600 Pt. needs met this shift, vss, kamar. wrist restraints in place, pt. confused and attempting to pull at gtube, hob at 30 degrees, tolerating feeding. Turned and given skin care q2, tolerated well.
[2021-08-25 07:52] LABS: BASOPHILS % (AUTO) 0.1 % (0.0-2.0); HEMATOCRIT 22.2 % (36-48); HEMOGLOBIN 7.4 g/dL (12.0-16.0); LYMPHOCYTES # (AUTO) 0.9 K/uL (1.0-5.5); LYMPHOCYTES % (AUTO) 6.4 % (20.5-51.5); MEAN CORPUSCULAR HEMOGLOBIN 28 pg (27-31); MEAN CORPUSCULAR HGB CONC 34 % (32-36); MEAN CORPUSCULAR VOLUME 82 fL (79.0-98.0); MONOCYTES # (AUTO) 1.2 K/uL (0.0-1.0); MONOCYTES % (AUTO) 8.4 % (1.7-9.3); NEUTROPHILS # (AUTO) 11.7 K/uL (1.8-7.7); NEUTROPHILS % (AUTO) 85.1 % (40.0-70.0); PLATELET COUNT (AUTO) 262 K/uL (130-430); RED CELL DISTRIBUTION WIDTH 16.6 % (9.0-15.0); WHITE BLOOD COUNT (AUTO) 13.7 K/uL (4.8-10.8)
[2021-08-25 08:00] VITALS: BP_SYST 135
[2021-08-25] MEDS: ACETYLCYSTEINE 10% 4 ML VIAL (RT) INH SCH ×2 (08:07→15:20)
[2021-08-25 08:13] LABS: ALANINE AMINOTRANSFERASE 51 U/L (12-78); ALBUMIN 1.6 g/dL (3.4-4.8); ANION GAP 13 (5-15); ASPARTATE AMINOTRANSFERASE 37 U/L (10-37); CALCIUM 8.7 mg/dL (8.4-11.0); CHLORIDE 105 mmol/L (98-107); CREATININE 2.47 mg/dL (0.55-1.30); GLUCOSE 139 mg/dL (70-99); POTASSIUM 3.6 mmol/L (3.5-5.1); SODIUM SERUM 139 mmol/L (136-145); TOTAL BILIRUBIN 0.1 mg/dL (0.0-1.0)
[2021-08-25] MEDS: MEROPENEM 500 MG in NS 50 ML IV SCH ×2 (09:03→20:48)
[2021-08-25] MEDS: DOXYCYCLINE HYCLATE 100 MG CAPSULE PO SCH ×2 (09:04→20:48)
[2021-08-25] MEDS: METHYLPREDNISOLONE SOD SUCC 40 MG/ML VIAL IVP SCH ×2 (09:04→20:48)
[2021-08-25] MEDS: HEPARIN SODIUM,PORCINE 5,000 UNITS/ML VIAL SUBCUT SCH ×2 (09:06→20:50)
[2021-08-25 09:10] LABS: UREA NITROGEN, BLOOD 106 mg/dL (8-21)
[2021-08-25] MEDS: D5/0.45 NS 1,000 ML IV SCH (11:23)
[2021-08-25 12:00] VITALS: BP_SYST 122
--- NOTE | 2021-08-25 12:30 | NUR ---
Walked into pt room and pt had removed her PICC line and colostomy bag was on the floor. Pt very confused, yelling. Notified DR Vale and obtained order to re-insert PICC and give morphine 2mg q 2hrs prn restlessness. orders carried out. PICC line re-inserted by PICC line nurse Trevor to right arm per protocol. pt tolerated well and cxr done to confirm placement. Notified family and notified Farnaz charge nurse.
[2021-08-25] MEDS ORDERED: NALOXONE HCL 0.4 MG/ML AMP (NARCAN) IVP PRN (12:45)
[2021-08-25 13:34] LABS: PROTHROMBIN TIME 10.4 SECS (9.5-12.5)
[2021-08-25] MEDS: MORPHINE 2 MG/ML INJ. SYRINGE IVP PRN ×2 (13:47→16:01)
[2021-08-25 16:33] VITALS: BP_SYST 130
--- NOTE | 2021-08-25 17:57 | NUR ---
Updated brother, his phones not working, but wifes' number is [phone].
[2021-08-25 20:04] VITALS: BP_SYST 134
[2021-08-25] MEDS: VANCOMYCIN HCL 1,000 MG in NS 250 ML IV SCH (23:44)
[2021-08-26] MEDS: ACETYLCYSTEINE 10% 4 ML VIAL (RT) INH SCH ×3 (00:02→15:38)
[2021-08-26] MEDS: IPRATROPIUM/ALBUTEROL SULFATE 3 ML AMPUL.NEB (DUONEB) INH SCH ×5 (00:02→15:38)
[2021-08-26 00:11] VITALS: BP_SYST 138
--- NOTE | 2021-08-26 02:19 | NUR ---
1930 Pt. in bed, hob at 30 degrees, pt. vss, no acute distress, kamar. wrist restraints in place 2200 Pt. turned, ana care given, no resp. distress 0030 Pt. turned, vss, hob at 30 degrees, will monitor. 0200 Pt. with no distress, will monitor.
[2021-08-26] MEDS: MORPHINE 2 MG/ML INJ. SYRINGE IVP PRN (03:46)
--- NOTE | 2021-08-26 06:20 | NUR ---
0600 Pt,. very agitated and yelling out, attempting to pull off mittens. Call to Md for one time dose of ativan. Vss, turned and kept dry and clean. Will monitor. tolerating gtube feeding with no residual this shift.
[2021-08-26] MEDS: D5/0.45 NS 1,000 ML IV SCH (07:00)
[2021-08-26 08:00] VITALS: BP_SYST 146
[2021-08-26] MEDS: METHYLPREDNISOLONE SOD SUCC 40 MG/ML VIAL IVP SCH (09:00)
[2021-08-26] MEDS: MEROPENEM 500 MG in NS 50 ML IV SCH (09:00)
--- NOTE | 2021-08-26 09:21 | NUR ---
Discharge Planning: DCP followed up with [facility] P#[phone] per Anamaria pt is accepted and Asuncion Oneil will be contacted. DCP faxed up dated clinical to [facility] P#[phone], DCP made admission aware, DCP to follow up. Addendum: 08/26/21 at 1432 by Zulema LOWE CORRECTION : [facility] P# [phone] F# [phone]
--- NOTE | 2021-08-26 10:30 | NUR ---
MD SPOKE TO FAMILY: DR FERRIS SPOKE TO FAMILY AND AGREEABLE PATIENT TO GO BACK [facility]. NO IV ACCESS,PATIENT PULLED OUT HER PICC LINE.PER MD,OKAY NOT TO PUT ANOTHER IV,PATIENT WILL BE TRANSFER UNDER HOSPICE.PATIENT ON COMFORT MEASURES ONLY.
[2021-08-26] MEDS: HALOPERIDOL LACTATE 5 MG/ML VIAL IM PRN ×2 (10:52→17:19)
[2021-08-26] MEDS: HEPARIN SODIUM,PORCINE 5,000 UNITS/ML VIAL SUBCUT SCH (10:55)
[2021-08-26] MEDS: DOXYCYCLINE HYCLATE 100 MG CAPSULE PO SCH (10:56)
[2021-08-26 11:30] VITALS: BP_SYST 141
--- NOTE | 2021-08-26 13:21 | NUR ---
HOSPICE NURSE: SPOKE WITH CLIFFODR FROM [facility] AND TO ARRANGE TRANSPORTATION TO [facility] UNDER HOSPICE CARE.WILL UPDATE RN FOR TRANSPORT CONFIRMATION.
[2021-08-26 16:06] VITALS: BP_SYST 157
[2021-08-26 16:51] VITALS: BP_SYST 157
--- NOTE | 2021-08-26 17:08 | NUR ---
REPORT NOTES: REPORT GIVEN TO SEAN Louis STAFF FROM [facility] UNDER HOSPICE CARE.
--- NOTE | 2021-08-26 17:55 | NUR ---
DC TRANSFER NOTES: TRANSFER PACKETS GIVEN TO [facility] AND REPORT GIVEN. HALDOL 5MG IM GIVEN PRIOR TO TRANSPORT ORDERED BY MD. PATIENT CALM THIS TIME. G TUBE CLAMPED AND COLOSTOMY BAG EMPTIED,INTACT AND ABDOMINAL BINDER APPLIED OVER IT. MEDICAL AMBULANCE, TRANSPORTED PATIENT TO [facility] UNDER HOSPICE CARE IN STABLE CONDITION.
== END 2021-08-26 17:55 | disposition hospice, inpatient (51) | DRG 640 ==
LOC: SED 15:23 → SMU 18:36 → STU 19:20
PROVIDERS: ADMIT Family Medicine; ATTEND Family Medicine
PROC: 0D20XUZ Change Feeding Device in Upper Intestinal Tract, External Approach (ICD-10-PCS; 2021-08-21)
PROC: 02HV33Z Insertion of Infusion Device into Superior Vena Cava, Percutaneous Approach (ICD-10-PCS; principal; 2021-08-22)
PROC: B548ZZA Ultrasonography of Superior Vena Cava, Guidance (ICD-10-PCS; 2021-08-22)
PROC: 02HV33Z Insertion of Infusion Device into Superior Vena Cava, Percutaneous Approach (ICD-10-PCS; 2021-08-25)
PROC: B548ZZA Ultrasonography of Superior Vena Cava, Guidance (ICD-10-PCS; 2021-08-25)
DX: E86.0 Dehydration (principal); E43 Unspecified severe protein-calorie malnutrition; N17.0 Acute kidney failure with tubular necrosis; J18.9 Pneumonia, unspecified organism; J96.21 Acute and chronic respiratory failure with hypoxia; G93.41 Metabolic encephalopathy; N39.0 Urinary tract infection, site not specified; K94.23 Gastrostomy malfunction; J44.0 Chronic obstructive pulmonary disease with (acute) lower respiratory infection; E87.0 Hyperosmolality and hypernatremia; E03.9 Hypothyroidism, unspecified; E87.6 Hypokalemia; I48.91 Unspecified atrial fibrillation; K21.9 Gastro-esophageal reflux disease without esophagitis; N18.9 Chronic kidney disease, unspecified; R13.10 Dysphagia, unspecified; Z74.01 Bed confinement status; Y83.8 Other surgical procedures as the cause of abnormal reaction of the patient, or of later complication, without mention of misadventure at the time of the procedure; D63.8 Anemia in other chronic diseases classified elsewhere; E83.41 Hypermagnesemia; E83.39 Other disorders of phosphorus metabolism; R62.7 Adult failure to thrive; Z66 Do not resuscitate; G80.9 Cerebral palsy, unspecified; B96.20 Unspecified Escherichia coli [E. coli] as the cause of diseases classified elsewhere; F03.90 Unspecified dementia, unspecified severity, without behavioral disturbance, psychotic disturbance, mood disturbance, and anxiety; Z87.440 Personal history of urinary (tract) infections; Y92.89 Other specified places as the place of occurrence of the external cause
CPT/HCPCS: 36415; 36600; 71045; 76770; 80048; 80053; 81000; 82140; 82803-TC; 83605; 83735; 83880; 84100; 84439; 84443; 85025; 85610-TC; 85730-TC; 87040; 87081; 87086; 93005; 93306; 94640; 94760; 96374; 99291; G0378; J0696; J1030; J1630; J1644; J1940; J1956; J2060; J2185; J2270; J3370; J3490; J7050; J7060; J7608; J7613